=== PATIENT | female | born 1960 | race Caucasian/White ===

== ENCOUNTER 2016-11-04 13:28 | Emergency (ER) | payer OTHER ==
[~2016-11-04 13:28] MED LIST: LISIPOW; LORT7.5T3 PO
[2016-11-04 13:30] VITALS: BP 181/108; PULSE 88; RESP 17; TEMP 98.4; O2SAT 99
[2016-11-04 13:34] VITALS: BP 173/98
--- NOTE | 2016-11-04 13:57 | PD ---
HPI . Right elbow pain Chief Complaint: Injury Time Seen by Provider: 13:56 Travel History International Travel<30 days: No Contact w/Intl Traveler<30days: No Traveled to known affect area: No History of Present Illness HPI 56-year-old female here with complaints of right elbow pain. Patient was working in a parking garage and a car grazed against her right elbow. She says she had some pain initially 7/10, but now it's 4/10. She has some tingling. She has a small superficial abrasion to her right elbow. She has full ROM of the joint. There is no swelling or discoloration. She has no other injury. [facility] Past Medical History Diminished Hearing: No Hypertension: Yes Tubal Ligation: Yes Social History Alcohol Use: Yes ("WHEN I FEEL LIKE IT" - EVERY COUPLE OF DAYS; BEER; 2-3; ) Tobacco Use: Yes (1/2 PK DAY) Substance Use: No Allergies-Medications (Allergen,Severity, Reaction): Coded Allergies: No Known Allergies (Verified , 11/04/16) Reported Meds & Prescriptions Reported Meds & Active Scripts Active Reported Lisinopril 20 Mg Tab 20 Mg PO DAILY Review of Systems General / Constitutional: No: Fever Eyes: No: Visual changes HENT: No: Headaches Cardiovascular: No: Chest Pain or Discomfort Respiratory: No: Shortness of Breath Gastrointestinal: No: Abdominal Pain Genitourinary: No: Dysuria Musculoskeletal: Positive: Pain (right elbow pain) Skin: No Rash Neurologic: Positive: Paresthesia, No: Weakness Psychiatric: No: Depression Endocrine: No: Polydipsia Hematologic/Lymphatic: No: Easy Bruising Physical Exam Narrative GENERAL: AAO x 3, no acute distress, Well-nourished, well-developed patient. SKIN: Warm and dry. No visible rashes or bruising. small 1 cm superficial abrasion to the olecranon process HEAD: Normocephalic and atraumatic. EYES: No scleral icterus. No injection or drainage. EOM intact, PERRLA ENT: No nasal drainage noted. Mucous membranes pink. Airway patent. NECK: Supple, trachea midline. No JVD. CARDIOVASCULAR: Regular rate and rhythm without murmurs, gallops, or rubs. RESPIRATORY: Breath sounds equal bilaterally. No accessory muscle use. No rhonchi or rales. GASTROINTESTINAL: Abdomen soft, non-tender, nondistended. EXTREMITIES: No cyanosis or edema. right elbow without any edema, ecchymosis or abnormality.Moves normally. Flexion and extension normal. BACK: No obvious deformity. NEURO: CN II-12 intact, music therapist strength normal b/l, UE and LE 5/5, no focal deficits PSYCH: AAO x 3, normal affect. Data Data Last Documented VS Vital Signs Date Time Temp Pulse Resp B/P (MAP) Pulse Ox O2 Delivery O2 Flow Rate FiO2 11/04/16 13:34 173/98 (123) 11/04/16 13:30 98.4 88 17 99 MDM Medical Decision Making Medical Screen Exam Complete: Yes Emergency Medical Condition: Yes Medical Record Reviewed: Yes Differential Diagnosis bone contusion, skin abrasion, less likely elbow fracture Narrative Course 56-year-old female here with complaints of right elbow pain. On examination there are no overt abnormalities other than a very small one centimeter superficial over the olecranon process. She has full range of motion of this extremity. There is no edema or ecchymosis. I've explained to her that I do not believe imaging is warranted. I do not think there is any type of bony abnormality. She is in agreement. I advised her that the tingling can linger for a while, however for persist past 7-10 days, that she needs to follow-up with her primary care provider workers [facility] physician. In the interim she can use an Stanton wrap for comfort. I have also provided her with ibuprofen 800 mg to use for inflammation. I advised light duty on the right arm for 3 days. Patient verbalized understanding of instructions, questions were answered, and thanked me for their care. I advised them if their condition worsens, please return to the nearest emergency room for further care. Diagnosis Primary Impression: Elbow pain, right Additional Impression: Abrasion of skin Patient Instructions: General Instructions Additional Instructions: Follow-up with your primary care provider or worker's comp physician for pain that persists past 7-10 days. Med/Other Pt SpecificInfo: Prescription(s) given Disposition: DISCHARGE HOME Condition: Stable Karey Talbert Nov 04, 2016 13:56
[2016-11-04] MEDS ORDERED: IBUP800T23 PO (14:08)
[2016-11-04] MEDS ORDERED: LISI-515 PO (14:09)
== END 2016-11-04 14:43 | disposition home or self-care (01) ==
LOC: NEPD 13:28
DX: S50.311A Abrasion of right elbow, initial encounter (principal); W22.8XXA Striking against or struck by other objects, initial encounter; Y92.89 Other specified places as the place of occurrence of the external cause; Y99.0 Civilian activity done for income or pay; F17.290 Nicotine dependence, other tobacco product, uncomplicated
CPT/HCPCS: 99282